=== PATIENT | female | born 1990 | race Caucasian/White ===

== ENCOUNTER → 2017-04-24 | Outpatient (CLI) | payer BC ==
[2013-10-18 08:52] VITALS: BP 123/83
[2017-04-24 11:49] LABS: CRYPTOSPORIDIUM PARVUM ANTIGEN NEGATIVE (NEGATIVE); GIARDIA LAMBLIA ANTIGEN NEGATIVE (NEGATIVE)
== END ==
LOC: LAB 09:28
PROVIDERS: ATTEND Internal Medicine
DX: R19.7 Diarrhea, unspecified (principal); R19.5 Other fecal abnormalities
CPT/HCPCS: 82270; 87045; 87205; 87328; 87329; 87336; 87427; 87493; 87899

== ENCOUNTER 2024-09-20 06:15 | Inpatient (IN) ==
[2024-09-20] MEDS ORDERED: NUBAIN INJ 20 MG AMP IVP PRN (06:30)
[2024-09-20] MEDS ORDERED: REGLAN INJ 10 MG VIAL IVP PRN (06:30)
[2024-09-20 07:07] LABS: BASOPHILS % (AUTO) 0.5 % (0.2-1.0); EOSINOPHILS # (AUTO) 0.2 x10^3/uL (0.0-0.2); EOSINOPHILS % (AUTO) 1.6 % (0.9-2.9); HEMOGLOBIN 12.8 g/dL (12.0-16.0); LYMPHOCYTES # (AUTO) 1.5 X10^3/uL (1.3-2.9); LYMPHOCYTES % (AUTO) 15.1 % (21.0-51.0); MEAN CORPUSCULAR HGB CONC 33.6 g/dL (33.0-35.0); MEAN CORPUSCULAR VOLUME 83.3 fL (80.0-100.0); MEAN PLATELET VOLUME 8.5 fL (7.4-11.0); MONOCYTES # (AUTO) 0.8 x10^3/uL (0.3-0.8); NEUTROPHILS # (AUTO) 7.6 x10^3/uL (2.2-4.8); NEUTROPHILS % (AUTO) 74.8 % (42.0-75.0); PLATELET COUNT 278 X10^3/uL (150.0-450.0); RED BLOOD COUNT 4.56 X10^6/uL (3.5-5.4); RED CELL DISTRIBUTION WIDTH 13.9 % (11.6-16.5); WHITE BLOOD COUNT 10.2 X10^3/uL (3.6-10.0)
--- NOTE | 2024-09-20 07:21 | DR.OB ---
OB QUICK NOTE Assessment/Plan (1) Elective induction of labor planned: (2) induced hypertension: Assessment/Plan: L&D 09/20/24 at 7:00am S-No complaint. O-Afebrile,VSS IGR=124 with good LTV, +accel, no decel. CTX=none CVX=3cm/75%/-1/VTX AROM with clear fluid. IUPC and FSE placed. A-IUP at 38 4/7 weeks for induction PIH Rh- P-Begin pitocin induction F/U labs Anticipate
[2024-09-20 07:22] LABS: INR 1.03 (0.8-1.3)
[2024-09-20] MEDS: OXYTOCIN 20 UNIT/1,000 ML-NS 20 UNIT/1,000 ML PLAST..BAG IV PRN (07:30)
[2024-09-20] MEDS: D5 1/2 NS 1,000 ML 1,000 ML IV SCH (07:38)
[2024-09-20] MEDS: D5 1/2 NS 1,000 ML 1,000 ML IV ONE (07:38)
[2024-09-20] MEDS: PITOCIN ONE (07:39)
[2024-09-20 07:40] LABS: ALANINE AMINOTRANSFERASE 20 Units/L (12-78); ASPARTATE AMINO TRANSFERASE 15 Units/L (15-37); BLOOD UREA NITROGEN 9 mg/dL (7-18); CALCIUM 9.2 mg/dL (8.5-10.1); CARBON DIOXIDE 23.5 mmol/L (21-32); CHLORIDE 105 mmol/L (98-107); CREATININE 0.67 mg/dL (0.55-1.02); GLUCOSE 80 mg/dL (65-99); LACTATE DEHYDROGENASE 182 Units/L (81-234); POTASSIUM 3.7 mmol/L (3.5-5.1); SODIUM 139 mmol/L (136-145); URIC ACID 3.2 mg/dL (2.6-6.0); eGFR NON BLACK RACES > 60 (>60)
[2024-09-20 08:01] LABS: APPEARANCE,URINE CLEAR (CLEAR); BILIRUBIN,URINE NEGATIVE (NEGATIVE); BLOOD/HEMOGLOBIN,URINE NEGATIVE (NEGATIVE); COLOR,URINE YELLOW (YELLOW); GLUCOSE, URINE NEGATIVE (NEGATIVE); KETONES,URINE NEGATIVE (NEGATIVE); LEUKOCYTE ESTERASE ,URINE 1+ (NEGATIVE); NITRITES,URINE NEGATIVE (NEGATIVE); PROTEIN,URINE NEGATIVE (NEGATIVE); UROBILINOGEN,URINE NORMAL (NORMAL)
[2024-09-20 08:10] LABS: BACTERIA,URINE NEGATIVE /HPF (NEGATIVE); RBC,URINE 0-2 /HPF (0-3); SQUAMOUS EPITHELIAL CELL,UR MANY /HPF (NEGATIVE)
[2024-09-20] MEDS: LR 1,000 ML IV 1,000 ML IV ONE (09:12)
[2024-09-20] MEDS: NAROPIN EPIDURAL 0.2% 100 ML ONE (10:49)
[2024-09-20] MEDS: FENTANYL VIAL INJ 100 mcg ONE (10:49)
[2024-09-20] MEDS: ZOFRAN INJ 4 MG VIAL IVP PRN (10:56)
[2024-09-20] MEDS: ZOFRAN INJ 4 MG VIAL ONE (10:56)
--- NOTE | 2024-09-20 12:38 | DR.OB ---
OB QUICK NOTE Assessment/Plan (1) Elective induction of labor planned: Assessment/Plan: L&D 09/20/24 at 12:35pm Pitocin=16mu/min. S-No complaint. s/p epidural. O-Afebrile,VSS GJW=176 with good LTV, +accel, no decel. CTX=q 1 1/2 min., about 35-55mmHg CVX=8cm/100%/0 A-IUP at 38 4/7 weeks for induction PIH Rh- P-Cont. pitocin induction Anticipate (2) induced hypertension:
[2024-09-20] MEDS: BETADINE SOLN ONE (14:36)
[2024-09-20] MEDS: PITOCIN IVP ONE (14:48)
--- NOTE | 2024-09-20 15:03 | DR.OB ---
OB QUICK NOTE Assessment/Plan (1) Elective induction of labor planned: Assessment/Plan: Delivery Note WAITRESS 09/20/24 at 2:43pm Patient complete and pushing. Head delivered over intact perineum. Nose and mouth bulb suctioned. No nuchal cord. Body delivered over intact perineum. Cord clamped x 2 and cut. Infant handed to attendant. Cord sent for gases. Placenta delivered spontaneously / intact / 3 vessel cord. No CVX tears. A small superficial tear noted at introitus, requiring a figure-of-8 stitch of 0- vicryl for hemostasis. Viable male delivered by , VTX/OA, wt=8'3" and 8/9, stable to NBN. Mother stable to RR. TVW=[id number]. (2) induced hypertension:
[2024-09-20] MEDS ORDERED: ADACEL or BOOSTRIX TDaP VACCINE IM ONE (15:14)
[2024-09-20] MEDS ORDERED: MILK OF MAGNESIA PO PRN (15:14)
[2024-09-20] MEDS ORDERED: AMBIEN PO PRN (15:14)
[2024-09-20] MEDS ORDERED: MOTRIN TAB 800 MG PO PRN (15:14)
[2024-09-20] MEDS ORDERED: DERMOPLAST PAIN RELIEF SPRAY TOP PRN (15:14)
[2024-09-20] MEDS: MOTRIN TAB 800 MG PO PRN (17:29)
[2024-09-20] MEDS: OXYTOCIN 20 UNIT/1,000 ML-NS 20 UNIT/1,000 ML PLAST..BAG IV SCH (18:26)
[2024-09-21] MEDS: ADACEL or BOOSTRIX TDaP VACCINE IM ONE (05:09)
[2024-09-21 05:39] LABS: HEMATOCRIT 30.3 % (36.0-47.0); HEMOGLOBIN 10.2 g/dL (12.0-16.0)
[2024-09-21] MEDS: HYPERRHO S/D (or RHOGAM) IM PRN (06:16)
[2024-09-21] MEDS: PRENATAL PLUS PO SCH (08:39)
[2024-09-21 10:31] VITALS: RESP 16
[2024-09-21 13:52] VITALS: BP 125/67; PULSE 99; TEMP 98.3; O2SAT 99
== END 2024-09-21 16:40 | disposition home or self-care (01) | DRG 806 ==
LOC: LD 06:15 → MED/SURG 16:20
PROVIDERS: ADMIT Specialist; ATTEND Specialist
DX: Z3A.38 38 weeks gestation of pregnancy; O13.3 Gestational [pregnancy-induced] hypertension without significant proteinuria, third trimester; Z37.0 Single live birth; O99.113 Other diseases of the blood and blood-forming organs and certain disorders involving the immune mechanism complicating pregnancy, third trimester